=== PATIENT | female | born 1940 | race Caucasian/White ===

== ENCOUNTER 2017-08-18 18:51 | Emergency (ER) | payer OTHER ==
[~2017-08-18] VITALS: Ht 154.9 cm; Wt 113.5 kg
[~2017-08-18 18:51] MED LIST: B-COTAB41 PO; FURO20 PO; LOMO PO; MOBI15TA PO; OMPR20CCR PO; VITA20003 PO
[2017-08-18 18:59] VITALS: BP 161/86; PULSE 93; RESP 18; TEMP 98.9; O2SAT 95
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
== END 2017-08-18 20:46 | disposition home or self-care (01) ==
LOC: PHEFT 18:51
DX: S76.012A Strain of muscle, fascia and tendon of left hip, initial encounter (principal); S76.011A Strain of muscle, fascia and tendon of right hip, initial encounter; S83.92XA Sprain of unspecified site of left knee, initial encounter; S83.91XA Sprain of unspecified site of right knee, initial encounter; I10 Essential (primary) hypertension; M19.90 Unspecified osteoarthritis, unspecified site; G47.30 Sleep apnea, unspecified; N19 Unspecified kidney failure; V43.52XA Car driver injured in collision with other type car in traffic accident, initial encounter
CPT/HCPCS: 73502; 73560; 99284